=== PATIENT | female | born 1955 | race Caucasian/White ===

== ENCOUNTER 2018-07-31 18:42 | Outpatient (REF) | payer BC, MEDICAID, SELFPAY ==
[2018-07-31 19:45] LABS: Hemoglobin A1C 6.2 % (4.5-6.2)
[2018-07-31 20:16] LABS: Microalb ug/mg Crea 5.9 ug/mg Cr
== END 2018-07-31 19:02 ==
LOC: NCHCN 18:42
PROVIDERS: PCP Physician Assistant; Visit Provider Nurse Practitioner Family
DX: Z00.00 Encounter for general adult medical examination without abnormal findings (principal); I10 Essential (primary) hypertension
CPT/HCPCS: 80053; 80061; 83721; 82043; 82570; 83036

== ENCOUNTER 2018-08-28 09:02 | Outpatient (REF) | payer BC, MEDICAID, SELFPAY ==
[2018-08-28 19:13] LABS: Anion Gap 8.1 mmol/L (3-11); BUN 14 mg/dL (7-18); CO2 30.9 mmol/L (21.0-32.0); Calcium 9.3 mg/dL (8.5-10.1); Chloride 101 mmol/L (98-107); Glucose 99 mg/dL (70-100); Potassium 4.5 mmol/L (3.5-5.1); Sodium 140 mmol/L (136-145)
[2018-08-28 19:37] LABS: Cholesterol 249 mg/dL (50-200); HDL Cholesterol 53 mg/dL (40-60); LDL CHOLESTEROL 170 mg/dL (<100); Triglyceride 114 mg/dL (30-150)
== END 2018-08-28 09:22 ==
LOC: NCHCN 09:02
PROVIDERS: PCP Physician Assistant; Visit Provider Nurse Practitioner Family
DX: Z00.00 Encounter for general adult medical examination without abnormal findings (principal); I10 Essential (primary) hypertension
CPT/HCPCS: 80048; 80061; 83721

== ENCOUNTER 2019-09-19 09:40 | Outpatient (REF) | payer BC, MEDICAID, SELFPAY ==
[2019-09-19 19:34] LABS: Anion Gap 8.4 mmol/L (3-11); BUN 19 mg/dL (7-18); CO2 31.6 mmol/L (21.0-32.0); CREATININE 0.82 mg/dL (0.55-1.02); Calculated LDL 168 mg/dL; Chloride 103 mmol/L (98-107); Cholesterol 238 mg/dL (<200); Glucose 103 mg/dL (74-106); HDL Cholesterol 55 mg/dL (40-60); Potassium 3.7 mmol/L (3.5-5.1); Sodium 143 mmol/L (136-145); Triglyceride 75 mg/dL (<150)
== END 2019-09-19 10:00 ==
LOC: NCHCN 09:40
PROVIDERS: PCP Physician Assistant; Visit Provider Nurse Practitioner Family
DX: I10 Essential (primary) hypertension (principal); E78.5 Hyperlipidemia, unspecified
CPT/HCPCS: 80048; 80061

== ENCOUNTER 2020-04-22 09:55 | Outpatient (REF) | payer BC, SELFPAY ==
[2020-04-22 19:59] LABS: Anion Gap 7.8 mmol/L (3-11); BUN 18 mg/dL (7-18); CO2 32.2 mmol/L (21.0-32.0); CREATININE 0.77 mg/dL (0.55-1.02); Calcium 9.5 mg/dL (8.5-10.1); Chloride 101 mmol/L (98-107); Glucose 99 mg/dL (74-106); Sodium 141 mmol/L (136-145)
[2020-04-22 20:07] LABS: Hemoglobin A1C 6.4 % (3.8-5.6)
== END 2020-04-22 10:15 ==
LOC: NCHCN 09:55
PROVIDERS: PCP Physician Assistant; Visit Provider Nurse Practitioner Family
DX: R73.03 Prediabetes (principal); I10 Essential (primary) hypertension
CPT/HCPCS: 80048; 83036

== ENCOUNTER 2021-01-07 18:49 | Outpatient (REF) | payer BC, SELFPAY ==
--- NOTE | 2021-01-07 16:53 | PAPFT_PTH ---
PATIENT: Bandar Mojica LOC: [facility]#:[id number] AGE/SX: 65/F ROOM: RE01/07/[address]: Venessa Fischer : 1955 BED: DIS: 01/07/2021 SPEC #: [id number] RECD: 01/08/21 12:55 STATUS: CARLOS REQ #: [id number] JAIME: 01/07/21 16:[address]: Venessa Fischer DEPT: [facility] Cytology RECD BY: Gracy Blank ENTERED: 01/08/21 12:55 SP TYPE: PAPFT OTHR DR: Amandeep Puri Tissues: 1 - CX/ENDOCX FOR PAP SMEARS Procedures: PAP THIN PREP/[facility] Screening Comments: [id number] (UNSATISFACTORY FOR EVALUATION)
== END 2021-01-07 18:50 | disposition home or self-care (01) ==
LOC: NCHCN 18:49
PROVIDERS: PCP Physician Assistant; Visit Provider Physician Assistant
DX: Z12.4 Encounter for screening for malignant neoplasm of cervix (principal); Z01.419 Encounter for gynecological examination (general) (routine) without abnormal findings; R87.615 Unsatisfactory cytologic smear of cervix
CPT/HCPCS: 88142

== ENCOUNTER 2021-02-02 08:51 | Outpatient (REF) | payer BC, SELFPAY ==
[2021-02-02 15:45] LABS: Abs Immature Grans 0.01 10^3/uL (0.0-0.06); Absolute Basophil Count 0.02 10^3/uL (0.0-0.2); Absolute Eosinophil Count 0.03 10^3/uL (0.0-0.7); Absolute Lymphocyte Count 1.46 10^3/uL (1.2-3.4); Absolute Monocyte Count 0.44 10^3/uL (0.1-0.8); Absolute Neutrophil Count 3.77 10^3/uL (1.2-6.7); Basophils % 0.3; Eosinophils % 0.5; HCT 37.6 % (36.0-46.0); HGB 12.1 g/dL (11.2-15.7); Immature Grans % 0.2; Lymphocytes % 25.5; MCH 26.6 pg (27.0-33.0); MCHC 32.2 % (32.0-36.0); MCV 82.6 fL (80-95); MPV 12.8 fL (8.0-11.0); Monocytes % 7.7; Neutrophils % 65.8; Nucleated RBC 0 %; Platelet Count 158 10^3/uL (130-400); RBC 4.55 10^6/uL (3.93-5.22); RDW 14.6 % (11.7-14.6); RDW-SD 43.8 fL; WBC 5.73 10^3/uL (4.4-10.8)
[2021-02-02 16:32] LABS: ALT 21 U/L (14-59); AST 11 U/L (15-37); Albumin 4.1 g/dL (3.4-5.0); Alkaline Phosphatase 85 U/L (46-116); BUN 25 mg/dL (7-18); Bilirubin, Total 0.3 mg/dL (0.2-1.0); CREATININE 1.1 mg/dL (0.55-1.02); Calcium 9.5 mg/dL (8.5-10.1); Calculated LDL 211 mg/dL (<100); Chloride 100 mmol/L (98-107); Cholesterol 293 mg/dL (<200); Estimated GFR 50.17 (mL/min/1.73m2); Glucose 323 mg/dL (74-106); HDL Cholesterol 55 mg/dL (40-60); Magnesium 1.8 mg/dL (1.8-2.4); Potassium 4.2 mmol/L (3.5-5.1); Sodium 135 mmol/L (136-145); TSH (W/Ref FT4) 2.78 uIU/mL (0.36-3.74); Total Protein 7.4 g/dL (6.4-8.2); Triglyceride 136 mg/dL (<150)
== END 2021-02-02 08:52 | disposition home or self-care (01) ==
LOC: NCHCN 08:51
PROVIDERS: PCP Physician Assistant; Visit Provider Physician Assistant
DX: Z00.00 Encounter for general adult medical examination without abnormal findings (principal); R25.2 Cramp and spasm; I10 Essential (primary) hypertension; E11.65 Type 2 diabetes mellitus with hyperglycemia; F41.8 Other specified anxiety disorders; K21.00 Gastro-esophageal reflux disease with esophagitis, without bleeding
CPT/HCPCS: 80053; 80061; 82043; 82570; 83735; 84443; 85025

== ENCOUNTER 2021-02-05 11:24 | Outpatient (REF) | payer BC, SELFPAY ==
[2021-02-05 16:20] LABS: COMMENT (LAB VIEW ONLY) 32.05 mg/dL; Microalb ug/mg Crea 17.8 ug/mg Cr
== END 2021-02-05 11:25 | disposition home or self-care (01) ==
LOC: NCHCN 11:24
PROVIDERS: PCP Physician Assistant; Visit Provider Physician Assistant
DX: K21.00 Gastro-esophageal reflux disease with esophagitis, without bleeding (principal)
CPT/HCPCS: 82043; 82570

== ENCOUNTER 2021-06-02 11:53 | Outpatient (REF) | payer BC, SELFPAY ==
[2021-06-02 19:55] LABS: ALT 19 U/L (14-59); AST 12 U/L (15-37); Albumin 4.3 g/dL (3.4-5.0); Alkaline Phosphatase 62 U/L (46-116); Anion Gap 10.1 mmol/L (3-11); BUN 15 mg/dL (7-18); Bilirubin, Total 0.3 mg/dL (0.2-1.0); CO2 27.9 mmol/L (21.0-32.0); CREATININE 0.8 mg/dL (0.55-1.02); Calcium 9.5 mg/dL (8.5-10.1); Chloride 103 mmol/L (98-107); Glucose 125 mg/dL (74-106); LDL CHOLESTEROL 72 mg/dL (<100); Potassium 4.7 mmol/L (3.5-5.1); Sodium 141 mmol/L (136-145); Total Protein 7.1 g/dL (6.4-8.2)
== END 2021-06-02 11:54 | disposition home or self-care (01) ==
LOC: NCHCN 11:53
PROVIDERS: PCP Physician Assistant; Visit Provider Physician Assistant
DX: E11.65 Type 2 diabetes mellitus with hyperglycemia (principal)
CPT/HCPCS: 80053; 83721

== ENCOUNTER 2021-11-04 12:14 | Outpatient (REF) | payer BC, SELFPAY ==
--- NOTE | 2021-11-04 16:40 | PAPFT_PTH ---
PATIENT: Bandar Mojica LOC: [facility]#:[id number] AGE/SX: 66/F ROOM: RE11/04/[address]: Venessa Fischer : 1955 BED: DIS: 11/04/2021 SPEC #: [id number] RECD: 11/05/21 12:42 STATUS: CARLOS REQ #: [id number] JAIME: 11/04/21 16:[address]: Venessa Fischer DEPT: [facility] Cytology RECD BY: Gracy Blank ENTERED: 11/05/21 12:43 SP TYPE: PAPFT OTHR DR: Amandeep Puri Tissues: 1 - CX/ENDOCX FOR PAP SMEARS Procedures: PAP THIN PREP/[facility] Screening HPV DNA PROBE Comments: [id number]
== END 2021-11-04 12:15 | disposition home or self-care (01) ==
LOC: NCHCN 12:14
PROVIDERS: PCP Physician Assistant; Visit Provider Physician Assistant
DX: Z12.4 Encounter for screening for malignant neoplasm of cervix (principal); Z11.51 Encounter for screening for human papillomavirus (HPV)
CPT/HCPCS: 88142; 87624

== ENCOUNTER 2022-02-04 20:45 | Outpatient (REF) | payer BC, SELFPAY ==
[2022-02-04 19:53] LABS: Anion Gap 5.7 mmol/L (3-11); BUN 20 mg/dL (7-18); CO2 29.3 mmol/L (21.0-32.0); CREATININE 1.1 mg/dL (0.55-1.02); Chloride 103 mmol/L (98-107); Estimated GFR 50.01 (mL/min/1.73m2); Glucose 96 mg/dL (74-106); Potassium 4.3 mmol/L (3.5-5.1); Sodium 138 mmol/L (136-145); TSH (W/Ref FT4) 2.15 uIU/mL (0.36-3.74)
== END 2022-02-04 20:46 | disposition home or self-care (01) ==
LOC: NCHCN 20:45
PROVIDERS: PCP Physician Assistant; Visit Provider Physician Assistant
DX: E11.65 Type 2 diabetes mellitus with hyperglycemia (principal); I10 Essential (primary) hypertension
CPT/HCPCS: 80048; 84443

== ENCOUNTER 2022-02-17 17:57 | Outpatient (REF) | payer BC, SELFPAY ==
[2022-02-17 21:43] LABS: Abs Immature Grans 0.01 10^3/uL (0.0-0.06); Absolute Lymphocyte Count 1.34 10^3/uL (1.2-3.4); Absolute Monocyte Count 0.42 10^3/uL (0.1-0.8); Absolute Neutrophil Count 4.21 10^3/uL (1.2-6.7); HCT 34.6 % (36.0-46.0); HGB 10.1 g/dL (11.2-15.7); Immature Grans % 0.2; Lymphocytes % 22.4; MCH 23.2 pg (27.0-33.0); MCHC 29.2 % (32.0-36.0); MCV 80 fL (80-95); MPV 12.6 fL (8.0-11.0); Neutrophils % 70.4; Platelet Count 237 10^3/uL (130-400); RBC 4.35 10^6/uL (3.93-5.22); RDW 15.4 % (11.7-14.6); RDW-SD 44.6 fL; Reticulocyte 0.9 % (0.5-2.4); WBC 5.98 10^3/uL (4.4-10.8)
[2022-02-17 21:59] LABS: Iron 20 ug/dL (50-170); Total Iron Binding Capacity 415 ug/dL (250-450); Transferrin Sat 5 % (15-50)
[2022-02-17 22:23] LABS: ALT 27 U/L (14-59); AST 16 U/L (15-37); Albumin 4.2 g/dL (3.4-5.0); Alkaline Phosphatase 82 U/L (46-116); Bilirubin, Direct 0.2 mg/dL (0.0-0.2); Bilirubin, Total 0.2 mg/dL (0.2-1.0); Ferritin 6 ng/mL (8-252); Total Protein 7.2 g/dL (6.4-8.2); Vitamin B12 223 pg/mL (193-986)
[2022-02-18 18:19] LABS: Vitamin D 25 Total 86.2 ng/mL (30-100)
== END 2022-02-17 17:58 | disposition home or self-care (01) ==
LOC: NCHCN 17:57
PROVIDERS: PCP Physician Assistant; Visit Provider Physician Assistant
DX: R40.0 Somnolence (principal); D64.9 Anemia, unspecified; R07.9 Chest pain, unspecified; R55 Syncope and collapse
CPT/HCPCS: 80076; 82306; 82607; 82728; 82746; 83540; 83550; 85025; 85045

== ENCOUNTER 2022-03-25 01:06 | Outpatient (CLI) | payer BC, SELFPAY ==
--- NOTE | 2022-03-25 | DI.NM_ITS ---
APPROVED REPORT Exam: Exercise Treadmill Patient Location: Out-Patient Room/Bed: Ordering Provider:MARY FULLER, Contact Number: [phone] BMI: 22.21 Baseline Rhythm: Sinus Rhythm Indications: CHEST PAIN, ABNORMAL STRESS TEST Medical History Medical History: HTN, HLD, DM, Depression, GERD, Murmur, Anemia, OA, Palpitations Cardiac Medications: Aspirin, Atorvastatin, Empagliflozin, Famotidine, Lisinopril, Metformin, Pantopr azole, Allergies: Diclofenac, Misoprostol, Sulfa, Tree nut, Trimethoprim, , Umeclidinium Cardiac Risk Factors: FHX of CAD, HTN, Hyperlipidemia, Diabetes (non-insulin) Previous Cardiac Procedures: None Pretest Chest Pain Characteristics: None Exercise History: Sedentary Physical Disabilities: None Lung Sounds: Clear to auscultation Heart Sounds: Regular Stress Test Details Test: Exercise stress testing was performed using a modified Salvatore protocol. Nuclear Acquisition: Rest Tc-99m/Stress Tc-99m 1 day Rest Isotope: Tc-99m Sestamibi. Dose: 9.9 Date: 03/25/2022 Injection Time: 0915 Stress Isotope: Tc-99m Sestamibi. Dose: 32.5 Date: 03/25/2022 Injection Time: 1055 HR Resting HR Supine: 71 bpm Max Heart Rate (APMHR): 156.446581 bpm Resting HR Standin bpm Target HR (85% APMHR): 132.423426 bpm Max HR Achieved: 138 bpm % of APMHR: 88.46 Recovery HR: 84 bpm HR response to stress: Normal HR response to stress BP Resting BP Supine: 148/78 mmHg Resting BP Standin/76 mmHg Max BP: 168/62 mmHg Recovery BP: 140/78 mmHg BP response to stress: Normal blood pressure response to stress. ECG Resting ECG: Sinus Rhythm Ectopy: None Stress ECG: Sinus Tachycardia ST Change: No significant ST segment changes noted Arrhythmia: None Recovery ECG: Sinus Rhythm Recovery ST Change: No significant ST segment changes noted Recovery Arrhythmia: Rare PAC Clinical Reason for Termination: Leg fatigue Stress Symptoms: Dyspnea, General Fatigue, Leg Fatigue Exercise duration: 04 min14 sec Highest Stage Reached: Stage 0.5: 1.7 mph at 5% grade. Exercise capacity: 3.01 METs Rate Pressure Product: [id number] Stress ECG Conclusion 1. Resting electrocardiogram was within normal limits 2. Patient exercised on a modified Salvatore protocol completed a workload of 3.01 METS, limited by fatig ue 3. Normal blood pressure response to exercise. The patient achieved 88% predicted heart rate for age . Rapid increase in heart rate with exercise suggests deconditioning 4. There was no electrocardiographic evidence of myocardial ischemia 5. There were no significant dysrhythmias 6. See MPI report Stress Test Summary STAGE Time (mins) Speed (mph) Grade (%) HR BP SYMPTOMS METS Supine 71 148/78 Standing 78 138/76 1 min recovery 117 168/62 SpO2 98% 3 min recovery 93 164/70 6 min recovery 84 140/78 0 1.7 0 135 1/2 1.7 5 MPI Conclusion Normal myocardial perfusion, no evidence of ischemia or prior infarction EF 83%, normal wall motion Radiologist Interpretation Radiologist agrees with Filling Station Attendant's Interpretation. Radiologist Interpretation by: Jessee Garza MD Interpretation Date/Time: 03/25/2022 17:50:31
== END 2022-03-25 01:26 ==
PROVIDERS: PCP Physician Assistant; Visit Provider Physician Assistant
DX: R07.89 Other chest pain (principal); R94.39 Abnormal result of other cardiovascular function study
CPT/HCPCS: 78452; 93017

== ENCOUNTER 2022-05-18 08:03 | Outpatient (CLI) | payer BC, SELFPAY ==
--- NOTE | 2022-05-18 08:00 | RT.EKG_ITS ---
APPROVED REPORT Exam: Resting ECG Reason for Exam: CP Patient Location: O HR:76 bpm ECG Measurements Heart Rate 76 AXIS WY 146 P 73 QRSd 79 QRS 61 QT 397 T 59 QTc 447 Conclusion Sinus rhythm...normal P axis, V-rate 50- 99 Normal Electrocardiogram
== END 2022-05-18 08:04 | disposition home or self-care (01) ==
LOC: DI.CARD 08:04
PROVIDERS: PCP Physician Assistant; Visit Provider Internal Medicine Cardiovascular Disease
DX: R07.9 Chest pain, unspecified (principal)
CPT/HCPCS: 93010

== ENCOUNTER 2023-02-17 18:29 | Outpatient (REF) | payer BC, SELFPAY ==
[2023-02-17 19:15] LABS: Abs Immature Grans 0.01 10^3/uL (0.0-0.06); Absolute Basophil Count 0.02 10^3/uL (0.0-0.2); Absolute Eosinophil Count 0.01 10^3/uL (0.0-0.7); Absolute Lymphocyte Count 1.16 10^3/uL (1.2-3.4); Absolute Monocyte Count 0.43 10^3/uL (0.1-0.8); Absolute Neutrophil Count 4.13 10^3/uL (1.2-6.7); Basophils % 0.3; Eosinophils % 0.2; HCT 41.5 % (36.0-46.0); HGB 13.4 g/dL (11.2-15.7); Immature Grans % 0.2; Lymphocytes % 20.1; MCH 28.3 pg (27.0-33.0); MCHC 32.3 % (32.0-36.0); MCV 88 fL (80-95); MPV 12.3 fL (8.0-11.0); Monocytes % 7.5; Neutrophils % 71.7; Platelet Count 180 10^3/uL (130-400); RBC 4.73 10^6/uL (3.93-5.22); RDW 13.3 % (11.7-14.6); RDW-SD 42.8 fL; WBC 5.76 10^3/uL (4.4-10.8)
[2023-02-17 19:34] LABS: ALT 38 U/L (14-59); AST 18 U/L (15-37); Albumin 3.9 g/dL (3.4-5.0); Alkaline Phosphatase 96 U/L (46-116); Anion Gap 6.3 mmol/L (3-11); BUN 17 mg/dL (7-18); Bilirubin, Total 0.2 mg/dL (0.2-1.0); CO2 27.7 mmol/L (21.0-32.0); CREATININE 0.9 mg/dL (0.55-1.02); Calcium 9.2 mg/dL (8.5-10.1); Chloride 102 mmol/L (98-107); Estimated GFR 70.95 (mL/min/1.73m2); Glucose 267 mg/dL (74-106); Potassium 4.6 mmol/L (3.5-5.1); Sodium 136 mmol/L (136-145); Total Protein 7.2 g/dL (6.4-8.2); Uric Acid 2.1 mg/dL (2.6-6.0)
[2023-02-18 19:10] LABS: Rheumatoid Factor <8.6 IU/mL (<12.0)
[2023-02-21 08:40] LABS: Cyclic Citrullinated Peptide <2.5 U/mL (<5.0)
== END 2023-02-17 18:30 | disposition home or self-care (01) ==
LOC: NCHCN 18:29
PROVIDERS: PCP Physician Assistant; Visit Provider Physician Assistant
DX: M79.644 Pain in right finger(s) (principal); M79.645 Pain in left finger(s); E11.9 Type 2 diabetes mellitus without complications; I10 Essential (primary) hypertension; D50.9 Iron deficiency anemia, unspecified
CPT/HCPCS: 80053; 86200; 84550; 85025; 86431

== ENCOUNTER 2023-12-30 09:49 | Outpatient (REF) | payer BC, SELFPAY ==
[2023-12-30 19:08] LABS: HCT 41.8 % (36.0-46.0); MCH 28.2 pg (27.0-33.0); MCHC 31.1 % (32.0-36.0); MCV 91 fL (80-95); MPV 12.1 fL (8.0-11.0); Platelet Count 179 10^3/uL (130-400); RBC 4.61 10^6/uL (3.93-5.22); RDW 13.4 % (11.7-14.6); RDW-SD 44.5 fL; WBC 5.95 10^3/uL (4.4-10.8)
[2023-12-30 19:24] LABS: Iron 40 ug/dL (50-170); Total Iron Binding Capacity 277 ug/dL (250-450); Transferrin Sat 14 % (15-50)
[2023-12-30 19:44] LABS: ALT 36 U/L (14-59); AST 22 U/L (15-37); Albumin 3.8 g/dL (3.4-5.0); Alkaline Phosphatase 85 U/L (46-116); Anion Gap 6.4 mmol/L (3-11); BUN 13 mg/dL (7-18); Bilirubin, Total 0.3 mg/dL (0.2-1.0); CO2 29.6 mmol/L (21.0-32.0); CREATININE 0.8 mg/dL (0.55-1.02); Chloride 104 mmol/L (98-107); Estimated GFR 81.21 (mL/min/1.73m2); Ferritin 50 ng/mL (8-252); Glucose 131 mg/dL (74-106); LDL CHOLESTEROL 55 mg/dL (<100); Potassium 4.8 mmol/L (3.5-5.1); Sodium 140 mmol/L (136-145)
[2023-12-30 20:06] LABS: COMMENT (LAB VIEW ONLY) 48.21 mg/dL; Microalb ug/mg Crea 8.9 ug/mg Cr
== END 2023-12-30 09:50 | disposition home or self-care (01) ==
LOC: NCHCN 09:49
PROVIDERS: PCP Physician Assistant; Visit Provider Physician Assistant
DX: E11.65 Type 2 diabetes mellitus with hyperglycemia (principal); E78.5 Hyperlipidemia, unspecified
CPT/HCPCS: 80053; 83721; 85027; 82043; 82570; 82728; 83540; 83550

== ENCOUNTER 2025-02-05 16:10 | Outpatient (REF) | payer BC, SELFPAY ==
[2025-02-05 19:08] LABS: Absolute Basophil Count 0.01 10^3/uL (0.0-0.2); Absolute Lymphocyte Count 0.92 10^3/uL (1.2-3.4); Absolute Monocyte Count 0.38 10^3/uL (0.1-0.8); Absolute Neutrophil Count 4.78 10^3/uL (1.2-6.7); Basophils % 0.2 %; HCT 43.6 % (36.0-46.0); HGB 13.8 g/dL (11.2-15.7); Lymphocytes % 15.1 %; MCH 28.6 pg (27.0-33.0); MCHC 31.7 % (32.0-36.0); MCV 90 fL (80-95); MPV 12.1 fL (8.0-11.0); Monocytes % 6.2 %; Neutrophils % 78.5 %; Platelet Count 176 10^3/uL (130-400); RBC 4.83 10^6/uL (3.93-5.22); RDW 13.2 % (11.7-14.6); RDW-SD 43.6 fL; WBC 6.09 10^3/uL (4.4-10.8)
[2025-02-05 19:17] LABS: Iron 73 ug/dL (50-170); Total Iron Binding Capacity 264 ug/dL (250-450); Transferrin Sat 28 % (15-50)
[2025-02-05 19:37] LABS: ALT 39 U/L (14-59); AST 30 U/L (15-37); Alkaline Phosphatase 95 U/L (46-116); Anion Gap 5.7 mmol/L (3-11); BUN 14 mg/dL (7-18); Bilirubin, Total 0.4 mg/dL (0.2-1.0); CO2 29.3 mmol/L (21.0-32.0); Calcium 9.9 mg/dL (8.5-10.1); Chloride 104 mmol/L (98-107); Estimated GFR 61.75 (mL/min/1.73m2); Ferritin 54 ng/mL (8-252); Glucose 190 mg/dL (74-106); Potassium 4.5 mmol/L (3.5-5.1); Sodium 139 mmol/L (136-145); TSH (W/Ref FT4) 2.97 uIU/mL (0.36-3.74); Total Protein 7.4 g/dL (6.4-8.2)
[2025-02-07 14:58] LABS: Hepatitis C Ab w Rflx HCV PCR Negative (Negative)
== END 2025-02-05 16:11 | disposition home or self-care (01) ==
LOC: NCHCN 16:10
PROVIDERS: PCP Physician Assistant; Visit Provider Physician Assistant
DX: I10 Essential (primary) hypertension (principal); D50.9 Iron deficiency anemia, unspecified; Z11.59 Encounter for screening for other viral diseases
CPT/HCPCS: 80053; 86803; 82728; 83540; 83550; 84443; 85025